=== PATIENT | female | born 1960 | race Caucasian/White ===

== ENCOUNTER 2023-06-05 16:26 | Emergency (ER) | payer OTHER ==
[~2023-06-05] VITALS: Ht 165.1 cm; Wt 90.9 kg
[~2023-06-05 16:26] MED LIST: ACET-49 PO; METF-1211 PO; OMEP20 PO; SIMV-260 PO
[2023-06-05 16:29] VITALS: TEMP 98.2
[2023-06-05] MEDS ORDERED: DULA0.75 SQ (16:31)
[2023-06-05] MEDS ORDERED: EMPA10TA3 PO (16:31)
[2023-06-05] MEDS ORDERED: IBUPROFEN 600 MG TABLET PO ONE (17:15)
[2023-06-05] MEDS ORDERED: IBUP-1492 PO (17:43)
[2023-06-05 19:26] VITALS: BP 132/88; PULSE 71; RESP 18
== END 2023-06-05 19:52 | disposition home or self-care (01) ==
LOC: EMS 16:26
DX: M25.532 Pain in left wrist (principal); E11.9 Type 2 diabetes mellitus without complications; Z98.890 Other specified postprocedural states
CPT/HCPCS: 99284; 73090-TC; 73100-TC; Z7502; Z7610